=== PATIENT | female | born 1985 | race Caucasian/White ===

== ENCOUNTER 2016-07-11 13:39 | Emergency (ER) | payer OTHER ==
[~2016-07-11] VITALS: Ht 167.6 cm; Wt 77.1 kg
[~2016-07-11 13:39] MED LIST: ALDACTONE25 M1 PO; AMOXICILLIN500 MG PO; ATIVAN1 MG PO; BACTRIM DS 8001 TA1 PO; CATAFLAM50 MG PO; CIPRO500 MG PO; CIPROFLOXACIN500 MG PO; CORTISPORIN 1%7.5 M1 OP; COZAAR25 M1 PO; FLEXERIL5 MG PO; FOLIC + B12 1 M1 TAB PO; HYDR25T PO; IBU800 M1 PO; KEFLEX500 MG PO; LABETALOL100 MG PO; LISINOPRIL/HCTZ1 TA3 PO; LISINOPRIL5 MG PO; MACROBID100 M1 PO; MOTRIN800 MG PO; Motrin,Rufen800 MG PO; NAPROSYN500 MG PO; PENICILLIN VK500 MG PO; PEPCID20 MG PO; PREDNICOT20 MG PO; PRILOSEC40 MG PO; PROTONIX40 MG PO; PYRIDIUM200 MG PO; ROBAXIN750 MG PO; TENORMIN25 MG PO; TRAMADOL HCL50 MG PO; TYLENOL W/CODEI1 TA2 PO; TYLENOL325 M1 PO; ULTRAM50 MG PO; VIBRAMYCIN100 MG PO; VICODIN ES 7501 TAB PO; VITAMIN B COMPL1 CAP PO; ZANTAC 150150 MG PO; ZANTAC150 MG PO; ZESTRIL,PRINIVI10 MG PO; ZITHROMAX Z PA250 MG PO
[2016-07-11] MEDS ORDERED: ESCITALOPRAM OX10 MG PO (13:46)
[2016-07-11] MEDS ORDERED: PRILOSEC10 MG/Pack PO (13:46)
[2016-07-11 14:09] LABS: BASO % 0.7 % (0.0-1.0); EOS # 0.2 10*3/uL (0.0-0.4); HEMATOCRIT 30.3 % (37.0-47.0); LYMPH # 1.3 10*3/uL (1.3-4.4); LYMPH % 24.2 % (27.0-41.0); MEAN CELL VOLUME 84.4 fl (81.0-99.0); MEAN CORPUSCULAR HGB 25.1 pg (27.0-31.0); MEAN CORPUSCULAR HGB CONC 29.7 g/dl (33.0-37.0); MEAN PLATELET VOLUME 9.9 fl (9.6-12.3); MONO # 0.4 10*3/uL (0.1-1.0); MONO % 7.1 % (3.0-9.0); NEUT # 3.5 10*3/uL (2.3-7.9); NEUT % 64.6 % (47.0-73.0); PLATELET COUNT AUTOMATED 336 10*3/uL (130-400); RED BLOOD COUNT 3.59 10*6/uL (4.10-5.10); RED CELL DISTRI WIDTH 14.4 % (0-14.5); WHITE BLOOD COUNT 5.4 10*3/uL (4.8-10.8)
[2016-07-11 14:31] LABS: ALBUMIN 3.6 gm/dl (3.1-4.5); ALKALINE PHOSPHATASE 97 U/L (45-117); BILIRUBIN, TOTAL 0.8 mg/dl (0.2-1.0); BUN 10 mg/dl (7-24); CARBON DIOXIDE 28 mmol/L (21-32); CHLORIDE 102 mmol/L (98-107); EST GLOM FILT AFRICAN AMERICAN > 60 ml/min; GLUCOSE 133 mg/dL (65-99); SGOT/AST 22 IU/L (3-35); SGPT/ALT 31 U/L (12-78); SODIUM 137 mmol/L (136-145); TOTAL PROTEIN 7.6 gm/dL (6.4-8.2)
[2016-07-11 14:53] LABS: BILIRUBIN NEGATIVE (NEGATIVE); BLOOD TRACE-INTACT (NEGATIVE); CLARITY CLEAR (CLEAR); COLOR YELLOW (YELLOW); GLUCOSE NEGATIVE (NEGATIVE); KETONE NEGATIVE (NEGATIVE); LEUKO ESTERASE NEGATIVE (NEGATIVE); NITRITE NEGATIVE (NEGATIVE); PROTEIN NEGATIVE (NEGATIVE); UROBILINOGEN 0.2 E.U./dl (0.2-1.0)
[2016-07-11 15:02] LABS: URINE REFLEX COMMENT NO (NO); WBC 0-2 wbc/hpf (0-5)
[2016-07-11] MEDS ORDERED: CARAFATE1 G1 PO (17:15)
== END 2016-07-11 17:32 | disposition home or self-care (01) ==
LOC: ED 13:39
PROVIDERS: Nurse Practitioner Family
DX: R10.11 Right upper quadrant pain (principal); D64.9 Anemia, unspecified; I10 Essential (primary) hypertension; F41.9 Anxiety disorder, unspecified; K21.9 Gastro-esophageal reflux disease without esophagitis; Z90.49 Acquired absence of other specified parts of digestive tract

== ENCOUNTER 2017-12-13 12:13 | Emergency (ER) | payer OTHER ==
[~2017-12-13] VITALS: Ht 162.5 cm; Wt 81.6 kg
[~2017-12-13 12:13] MED LIST changes: +CARAFATE1 G1 PO; +ESCITALOPRAM OX10 MG PO; +PRILOSEC10 MG/Pack PO
== END 2017-12-13 13:57 | disposition home or self-care (01) ==
LOC: ED 12:13
DX: M79.605 Pain in left leg (principal); Z79.899 Other long term (current) drug therapy

== ENCOUNTER 2023-03-08 13:16 | Emergency (ER) | payer OTHER ==
[~2023-03-08] VITALS: Wt 89.8 kg
[2023-03-08 17:05] LABS: BASO # 0.1 10*3/uL (0.0-0.1); BASO % 0.5 % (0.0-1.0); EOS # 0.1 10*3/uL (0.0-0.4); HEMATOCRIT 39.4 % (37.0-47.0); LYMPH # 2.2 10*3/uL (1.3-4.4); LYMPH % 20.6 % (27.0-41.0); MEAN CELL VOLUME 91.8 fl (81.0-99.0); MEAN CORPUSCULAR HGB 31.9 pg (27.0-31.0); MEAN CORPUSCULAR HGB CONC 34.8 g/dl (33.0-37.0); MEAN PLATELET VOLUME 9.8 fl (9.6-12.3); MONO # 0.7 10*3/uL (0.1-1.0); MONO % 6.4 % (3.0-9.0); NEUT # 7.5 10*3/uL (2.3-7.9); NEUT % 71.2 % (47.0-73.0); PLATELET COUNT AUTOMATED 371 10*3/uL (130-400); RED BLOOD COUNT 4.29 10*6/uL (4.10-5.10); RED CELL DISTRI WIDTH 11.9 % (0-14.5); WHITE BLOOD COUNT 10.5 10*3/uL (4.8-10.8)
[2023-03-08 17:24] LABS: ALKALINE PHOSPHATASE 105 U/L (46-116); BUN 6 mg/dl (9-23); CHLORIDE 98 mmol/L (98-107); POTASSIUM 2.8 mmol/L (3.4-5.1); SGPT/ALT 16 U/L (10-49); TOTAL PROTEIN 7.8 gm/dL (6.0-8.0)
[2023-03-08] MEDS ORDERED: CYCLOBENZAPRINE5 M3 PO (18:34)
[2023-03-08] MEDS ORDERED: PREDNISONE50 MG PO (18:34)
[2023-03-08] MEDS ORDERED: K-TAB10 MEQ PO (18:34)
== END 2023-03-08 18:58 | disposition home or self-care (01) ==
LOC: ED 13:16
PROVIDERS: Internal Medicine
DX: E87.6 Hypokalemia (principal); R20.0 Anesthesia of skin; R20.2 Paresthesia of skin; K21.9 Gastro-esophageal reflux disease without esophagitis; I10 Essential (primary) hypertension; J45.909 Unspecified asthma, uncomplicated; G43.909 Migraine, unspecified, not intractable, without status migrainosus; Z98.890 Other specified postprocedural states

== ENCOUNTER 2023-10-12 10:21 | Emergency (ER) | payer OTHER ==
[~2023-10-12] VITALS: Ht 167.6 cm; Wt 90.7 kg
[~2023-10-12 10:21] MED LIST changes: +CYCLOBENZAPRINE5 M3 PO; +K-TAB10 MEQ PO; +PREDNISONE50 MG PO
[2023-10-12] MEDS ORDERED: Acetaminophen/Oxycodone 5 MG/325 MG TABLET PO ONE (10:45)
[2023-10-12] MEDS ORDERED: TRIAMCINOLONE430 GM TD (10:48)
[2023-10-12] MEDS ORDERED: MELOXICAM15 MG PO (10:48)
== END 2023-10-12 11:14 | disposition home or self-care (01) ==
LOC: ED 10:21
DX: G56.02 Carpal tunnel syndrome, left upper limb (principal); R21 Rash and other nonspecific skin eruption; K21.9 Gastro-esophageal reflux disease without esophagitis; I10 Essential (primary) hypertension; J45.909 Unspecified asthma, uncomplicated; G43.909 Migraine, unspecified, not intractable, without status migrainosus; Z98.890 Other specified postprocedural states; Z90.49 Acquired absence of other specified parts of digestive tract

== ENCOUNTER 2024-05-23 16:30 | Emergency (ER) | payer OTHER ==
[~2024-05-23] VITALS: Ht 162.5 cm; Wt 92.1 kg
[~2024-05-23 16:30] MED LIST changes: +MELOXICAM15 MG PO; +TRIAMCINOLONE430 GM TD
[2024-05-23 17:26] LABS: HEMATOCRIT 38.3 % (37.0-47.0); MEAN CELL VOLUME 95.8 fl (81.0-99.0); MEAN CORPUSCULAR HGB CONC 32.4 g/dl (33.0-37.0); MEAN PLATELET VOLUME 10.6 fl (9.6-12.3); PLATELET COUNT AUTOMATED 264 10*3/uL (130-400); RED CELL DISTRI WIDTH 11.7 % (0-14.5); WHITE BLOOD COUNT 6.6 10*3/uL (4.8-10.8)
[2024-05-23 17:35] LABS: ACT PARTIAL THROMBO TIME 28.2 SECONDS (20.0-32.1)
[2024-05-23 17:43] LABS: ALKALINE PHOSPHATASE 95 U/L (46-116); CHLORIDE 106 mmol/L (98-107); POTASSIUM 2.8 mmol/L (3.4-5.1); SGPT/ALT 11 U/L (5-49); TOTAL PROTEIN 7.4 gm/dL (6.0-8.0)
[2024-05-23 17:48] LABS: BUN < 5 mg/dl (9-23)
[2024-05-23 17:49] LABS: MANUAL DIFF REFLEX YES
[2024-05-23] MEDS ORDERED: POTASSIUM CHLORIDE 20 MEQ TAB PO ONE (17:50)
[2024-05-23] MEDS ORDERED: POTASSIUM CHLORIDE IN WATER 100 ML IV ONE (17:50)
[2024-05-23 17:51] LABS: BILIRUBIN Negative (Negative); BLOOD Negative (Negative); CLARITY Clear (Clear); COLOR Yellow (Yellow); GLUCOSE Negative (Negative); KETONE Negative (Negative); LEUKO ESTERASE 1+ (Negative); NITRITE Negative (Negative); UROBILINOGEN 0.2 E.U./dl (0.0-1.0)
[2024-05-23 18:02] LABS: PLATELET SUFFICIENCY NORMAL (NORMAL); TOTAL CELLS COUNTED 100 #CELLS
[2024-05-23 18:02] LABS: EPITHELIAL CELLS 0-2
== END 2024-05-23 20:22 | disposition home or self-care (01) ==
LOC: ED 16:30
PROVIDERS: Internal Medicine
DX: I10 Essential (primary) hypertension (principal); M79.601 Pain in right arm; E87.6 Hypokalemia; F41.9 Anxiety disorder, unspecified; K21.9 Gastro-esophageal reflux disease without esophagitis; J45.909 Unspecified asthma, uncomplicated; G43.909 Migraine, unspecified, not intractable, without status migrainosus; Z90.49 Acquired absence of other specified parts of digestive tract; Z98.890 Other specified postprocedural states; Z79.899 Other long term (current) drug therapy